=== PATIENT | male | born 1995 | race Caucasian/White ===

== ENCOUNTER 2017-04-25 22:49 | Emergency (ER) | payer OTHER ==
[~2017-04-25] VITALS: Ht 172.7 cm; Wt 77.1 kg
== END 2017-04-26 01:40 | disposition short-term general hospital (02) ==
LOC: ER 22:49
DX: S06.0X9A Concussion with loss of consciousness of unspecified duration, initial encounter (principal); V86.99XA Unspecified occupant of other special all-terrain or other off-road motor vehicle injured in nontraffic accident, initial encounter
CPT/HCPCS: G0480; J2405